=== PATIENT | male | born 1990 | race African-American/Black ===

== ENCOUNTER 2020-12-28 10:17 | Emergency (ER) | payer OTHER ==
[2020-12-28 10:26] VITALS: BP 149/86; PULSE 58; TEMP 98.6; BMI 77.5
[2020-12-28] MEDS ORDERED: NAPROXEN 500 MG TABLET PO ONE (11:00)
[2020-12-28] MEDS ORDERED: NAPROXEN 500 MG TABLET ONE (11:53)
== END 2020-12-28 12:35 | disposition home or self-care (01) ==
LOC: JER 10:17 → JERFT 10:17
DX: S86.911A Strain of unspecified muscle(s) and tendon(s) at lower leg level, right leg, initial encounter (principal)
CPT/HCPCS: 73562-TC-RT-FY; 99283-25